=== PATIENT | male | born 1995 | race Caucasian/White ===

== ENCOUNTER 2023-05-24 05:21 | Day surgery (SDC) | payer OTHER ==
[~2023-05-24] VITALS: Ht 190.5 cm; Wt 81.8 kg
[2023-05-24] MEDS ORDERED: RINGERS SOLUTION,LACTATED 1,000 ML IV ONE (05:26)
[2023-05-24] MEDS ORDERED: BUPIVACAINE LIPOSOME/PF 1.3%-13.3MG/ML SUSPENSION 20 ML VIAL INJ ONE (06:00)
[2023-05-24] MEDS: RINGERS SOLUTION,LACTATED 1,000 ML IV ONE (06:09)
[2023-05-24] MEDS ORDERED: VANCOMYCIN HCL 1 GM/VIAL ONE (06:15)
[2023-05-24] MEDS ORDERED: BUPIVACAINE HCL/PF 0.5% 30 ML VIAL ONE (06:15)
[2023-05-24] MEDS ORDERED: MICROFIBRILLAR COLLAGEN 1 GM PACKAGE TP ONE (06:25)
[2023-05-24] MEDS ORDERED: IOHEXOL 240 MG/ML 20 ML VIAL ONE (06:45)
[2023-05-24] MEDS ORDERED: MEPERIDINE-PF 25 MG/ML VIAL IVP PRN (07:30)
[2023-05-24] MEDS ORDERED: FentaNYL CITRATE PF 100 MCG/2 ML VIAL IVP PRN (07:30)
[2023-05-24] MEDS ORDERED: HYDROmorphone HCL 2 MG/ML SYRINGE IVP PRN (07:30)
[2023-05-24] MEDS ORDERED: OXYGEN THERAPY IH SCH (08:00)
[2023-05-24] MEDS ORDERED: RINGERS SOLUTION,LACTATED 500 ML IV ONE (08:22)
[2023-05-24] MEDS ORDERED: FentaNYL CITRATE PF 100 MCG/2 ML VIAL IVP ONE (09:34)
[2023-05-24] MEDS ORDERED: CeFAZolin SODIUM 1 GM VIAL IVP ONE (09:34)
[2023-05-24] MEDS ORDERED: MORPHINE SULFATE/PF 0.5 MG/ML 10 ML AMP IVP ONE (09:34)
[2023-05-24] MEDS ORDERED: 0.9% SODIUM CHLORIDE 10 ML VIAL IVP ONE (09:34)
[2023-05-24] MEDS ORDERED: ONDANSETRON HCL 4 MG/2 ML VIAL IVP ONE (09:34)
[2023-05-24] MEDS ORDERED: KETOROLAC TROMETHAMINE 60 MG/2 ML VIAL IM ONE (09:34)
[2023-05-24] MEDS ORDERED: ROCURONIUM BROMIDE 10 MG/ML 5 ML VIAL IVP ONE (09:34)
[2023-05-24] MEDS ORDERED: MIDAZOLAM HCL 2 MG/2 ML VIAL IVP ONE (09:34)
[2023-05-24] MEDS ORDERED: LIDOCAINE/PF 2% 5 ML VIAL IM ONE (09:34)
[2023-05-24] MEDS ORDERED: SUGAMMADEX SODIUM 200 MG/2 ML VIAL IVP ONE (09:34)
[2023-05-24] MEDS ORDERED: PROPOFOL 1% 20 ML VIAL IVP ONE (09:34)
== END 2023-05-24 09:35 | disposition home or self-care (01) ==
LOC: SURGERY 05:21 → UNDOADMIN 05:21 → 6S 05:21 → EDSTATUS 07:30 → UNDODISIN 09:35 → SURGERY 09:35
PROVIDERS: ATTEND Orthopaedic Surgery
DX: S92.062A Displaced intraarticular fracture of left calcaneus, initial encounter for closed fracture (principal); X58.XXXA Exposure to other specified factors, initial encounter; Y93.89 Activity, other specified; Y92.89 Other specified places as the place of occurrence of the external cause; Y99.8 Other external cause status
CPT/HCPCS: 28415; 27648; Q9966; J3490 ×3; J2704; J0690; J3010; J1885; J2250; J2274; J2405; J3370; Q9967; J7120 ×2; C9290; C1713